=== PATIENT | female | born 1985 | race American Indian/Alaskan Native ===

== ENCOUNTER 2021-01-20 08:00 | Outpatient (CLI) | payer OTHER | END 2021-01-20 08:30 | disposition home or self-care (01) | LOC: PPH VACUNA 08:00 | DX: Z23 Encounter for immunization (principal) ==

== ENCOUNTER 2021-02-10 08:00 | Outpatient (CLI) | payer OTHER | END 2021-02-10 08:30 | disposition home or self-care (01) | LOC: PPH VACUNA 08:00 | DX: Z23 Encounter for immunization (principal) ==

== ENCOUNTER 2022-12-23 11:09 | Outpatient (CLI) | payer OTHER | END 2022-12-23 11:18 | disposition home or self-care (01) | LOC: SONOGRAMA 11:09 | DX: N63.0 Unspecified lump in unspecified breast (principal) ==